=== PATIENT | female | born 2005 | race Caucasian/White ===

== ENCOUNTER 2024-04-04 12:09 | Emergency (ER) | payer OTHER, SELFPAY ==
[2024-04-04 12:18] VITALS: BP 118/65; PULSE 104; RESP 16; TEMP 36.4; O2SAT 99
[2024-04-04 12:32] LABS: EDSTREPNEGPOS1 Negative (Negative)
--- NOTE | 2024-04-04 12:37 | ED.URI ---
HPI - URI/Sore Throat General Chief Complaint: Upper Respiratory Infection Stated Complaint: Sore Throat Time Seen by Provider: 04/04/24 12:30 Source: patient and RN notes reviewed Mode of arrival: ambulatory Limitations: no limitations History of Present Illness HPI Narrative: Patient presents today complaining of sore throat, nasal congestion, and right ear pain since last night. Denies fever, cough, shortness of breath. She has tried Mucinex without relief. Related Data Home Medications Medication Instructions Recorded Confirmed ferrous sulfate 325 mg (65 mg 325 mg PO DAILY 04/04/24 04/04/24 iron) tablet norethindrone (contraceptive) 0.35 0.35 mg PO DAILY 04/04/24 04/04/24 mg tablet sumatriptan succinate 25 mg tablet 25 mg PO DAILY 04/04/24 04/04/24 Review of Systems Review of Systems: CONSTITUTIONAL: Denies body aches, fever, chills, or sweats. EYES: Denies visual changes, redness, or discharge. ENT: Denies rhinorrhea.+ sore throat, right ear pain congestion CARDIOVASCULAR: Denies chest pain, palpitations, or edema. RESPIRATORY: Denies cough or dyspnea. GASTROINTESTINAL: Denies abdominal pain, nausea, vomiting, or diarrhea. GENITOURINARY: Denies dysuria or hematuria. SKIN: Denies rash, itching, or wounds. MUSCULOSKELETAL: Denies back pain, joint pain, or myalgia. NEUROLOGIC: Denies headache, numbness, tingling, or weakness. PSYCH: Denies depression or anxiety. [facility] Surgical History Surgical History (Updated 04/04/24 @ 12:39 by Rehana Madrigal, [facility], ) H/O gastric sleeve Comments At time of signature, I have reviewed and agree with nursing past medical, surgical, social and family history unless otherwise noted. Please see nursing chart for further information. There is no relevant family history pertinent to the presenting complaint Exam Narrative: GENERAL: Well-appearing, well-nourished, and in no acute distress. HEAD: Normocephalic, atraumatic. EYES: EOMI. No redness or drainage. Conjunctivae normal. ENT: Mucous membranes pink and moist. Nares clear. No rhinorrhea. TMs normal bilaterally. Throat normal. Uvula midline. NECK: Normal AROM. Supple. No lymphadenopathy. CHEST: No respiratory distress. Clear to auscultation. HEART: Regular rate and rhythm. No murmur appreciated. EXTREMITIES: Normal range of motion. No edema. SKIN: Warm, dry, no rash. Capillary refill normal. Normal skin turgor. NEURO: No focal deficits. Alert and oriented x3. Gait steady. PSYCH: Normal affect. No signs of depression or anxiety. Course Course Level of Care: Express Care Visit Vital Signs Vital signs: Vital Signs Temperature 97.6 F 04/04/24 12:18 Pulse Rate 104 H 04/04/24 12:18 Respiratory Rate 16 04/04/24 12:18 Blood Pressure 118/65 04/04/24 12:18 Pulse Oximetry 99 04/04/24 12:18 Temperature 97.6 F 04/04/24 12:18 Pulse Rate 104 H 04/04/24 12:18 Respiratory Rate 16 04/04/24 12:18 Blood Pressure 118/65 04/04/24 12:18 Pulse Oximetry 99 04/04/24 12:18 Reviewed MDM - URI/Sore Throat MDM Narrative Medical decision making narrative: Rapid strep negative. Culture pending. Symptoms likely viral in etiology. Discussed [id number] medication use and duration of illness. No prescription medications indicated at this time. Anticipatory guidance given. Differential Diagnosis Differential diagnosis: Likely upper respiratory infection, otitis media, viral infection, pharyngitis and other (Strep throat) Lab Data Attestation: I reviewed the patient's lab results. Labs: Lab Results 04/04/24 Range/Units 12:30 POC Grp A Strep Screen Negative (Negative) Critical Care Time Critical Care Time Critical Care Time: No Discharge Plan Discharge Clinical Impression: Upper respiratory infection Qualifiers: URI type: unspecified URI Qualified Code(s): J06.9 - Acute upper respiratory infection, unspecified Patient Disposition: Home, Self-Care Condition: Stable Instructions: Upper Respiratory Infection (DC) Additional Instructions: Your rapid strep swab was negative today at [facility]. You will be notified in a few days if the culture comes back positive for strep, and appropriate antibiotics will be called in for you at that time. Your symptoms are likely due to a viral illness, which is not treated with antibiotics. Viral symptoms can be present for up to 7-10 days. Take Tylenol for fever or pain. Rest and stay hydrated. Follow up with your PCP in 7-10 days if symptoms are not improving. Go to the ER immediately if you have any difficulty breathing or swallowing. Prescriptions: No Action sumatriptan succinate 25 mg tablet 25 mg PO DAILY norethindrone (contraceptive) 0.35 mg tablet 0.35 mg PO DAILY ferrous sulfate 325 mg (65 mg iron) Tablet 325 mg PO DAILY Follow-up/Referrals: PHYSICIAN,ASSEMBLER [facility] PIPES [Primary Care Provider] - Time of Disposition: 12:40
== END 2024-04-04 12:43 | disposition home or self-care (01) ==
PROVIDERS: Emergency Provider Nurse Practitioner
DX: J06.9 Acute upper respiratory infection, unspecified (principal); Z98.84 Bariatric surgery status
CPT/HCPCS: 87081; 87880; 99203; G0463

== ENCOUNTER 2024-05-07 14:15 | Emergency (ER) | payer OTHER, SELFPAY ==
[2024-05-07 14:30] VITALS: BP 133/72; PULSE 93; RESP 18; TEMP 36.6; O2SAT 98
--- NOTE | 2024-05-07 14:52 | ED_ITS ---
HPI - URI/Sore Throat General Chief Complaint: Upper Respiratory Infection Stated Complaint: Cough Time Seen by Provider: 05/07/24 14:53 Source: patient Mode of arrival: ambulatory Limitations: no limitations History of Present Illness HPI Narrative: 18-year-old female presented for complaint of chest congestion and cough. States she had a cough one week ago, then it resolved for 2 days. States she woke with cough again yesterday, and endorses the upper chest feels tight with coughing. Denies sob, wheezing, lethargy, n/v/d/f/c. Related Data Home Medications ?Medication ?Instructions ?Recorded ?Confirmed ?Last Taken ?Type ferrous sulfate 325 mg (65 mg 325 mg PO DAILY 04/04/24 04/04/24 Unknown History iron) tablet norethindrone (contraceptive) 0.35 0.35 mg PO DAILY 04/04/24 04/04/24 Unknown History mg tablet Allergies Allergy/AdvReac Type Severity Reaction Status Date / Time No Known Allergies Allergy Verified 05/07/24 14:49 Review of Systems Review of Systems: CONSTITUTIONAL: Denies body aches, fever, chills, or sweats. EYES: Denies visual changes, redness, or discharge. ENT: Denies rhinorrhea, congestion, sore throat, or otalgia. CARDIOVASCULAR: Denies chest pain, palpitations, or edema. RESPIRATORY: Reports cough, denies sob, wheezing. GASTROINTESTINAL: Denies abdominal pain, nausea, vomiting, or diarrhea. NEUROLOGIC: Denies headache, numbness, tingling, or weakness. PSYCH: Denies depression or anxiety. All systems reviewed & are unremarkable except as noted in HPI and below [facility] Surgical History Surgical History H/O gastric sleeve Comments At time of signature, I have reviewed and agree with nursing past medical, surgical, social and family history unless otherwise noted. Please see nursing chart for further information. There is no relevant family history pertinent to the presenting complaint Exam Narrative: GENERAL: Well-appearing, in no acute distress. EYES: EOMI. No redness or drainage. Conjunctivae normal. ENT: Mucous membranes pink and moist. No rhinorrhea. TMs normal bilaterally. Throat normal. Uvula midline. NECK: Normal AROM. Supple. CHEST: No respiratory distress. Lungs clear to all ritter. HEART: Regular rate and rhythm. No murmur appreciated. ABDOMEN: Soft, nontender, nondistended, normal active bowel sounds. SKIN: Warm, dry, no rash. Capillary refill normal. Normal skin turgor. NEURO: Alert and oriented x3. Gait steady. PSYCH: Normal affect. Course Course Emergency Course: Patient is aware of diagnosis, understands and agrees to treatment plan. Anticipatory guidance given. Patient agrees to follow-up as directed and is gordon re of reasons to seek care at the emergency department. Portions of this record may have been created with voice recognition software Level of Care: Express Care Visit Vital Signs Vital signs: Vital Signs Temperature 97.8 F 05/07/24 14:30 Pulse Rate 93 05/07/24 14:30 Respiratory Rate 18 05/07/24 14:30 Blood Pressure 133/72 05/07/24 14:30 Pulse Oximetry 98 05/07/24 14:30 Oxygen Delivery Room Air 05/07/24 14:30 Temperature 97.8 F 05/07/24 14:30 Pulse Rate 93 05/07/24 14:30 Respiratory Rate 18 05/07/24 14:30 Blood Pressure 133/72 05/07/24 14:30 Pulse Oximetry 98 05/07/24 14:30 Oxygen Delivery Room Air 05/07/24 14:30 MDM - URI/Sore Throat MDM Narrative Medical decision making narrative: Discussed physical exam findings. Advised supportive measures and signs/symptoms to go to the ER. Pt is appropriate for outpt treatment and f/u. Differential Diagnosis Differential diagnosis: Likely upper respiratory infection, otitis media, sinusitis, viral infection, bronchitis, influenza and pharyngitis Discharge Plan Discharge Clinical Impression: Bronchitis Patient Disposition: Home, Self-Care Condition: Stable Instructions: Antibiotic Form, Acute Bronchitis (ED) Additional Instructions: Acute bronchitis can be contagious because it is usually caused by infection with a virus or bacteria. It is usually for a few days but you can be contagious for up to one week. Avoid crowds until you do not have a fever and symptoms are improved Take medication as directed Recommendations: over the counter Cough syrup may cause drowsiness; avoid driving or take it at night time. Tylenol 1000mg every 8 hours as needed for pain Flonase spray and Zyrtec (or Claritin/Loree) if you have nasal congestion Symptomatic treatment includes: rest, fluids, and increase humidity of the air at home. Follow up with your primary care provider as needed in 1 week Go to the ER for worsening symptoms or concerns Patient Language: Citizen Of [place] Prescriptions: New azithromycin [Zithromax Z-Henrik] 250 mg tablet See Rx Instructions .ROUTE .COMPLEX Qty: 6 0RF Rx Instructions: For 250 mg dose pack: take 500 mg today (day 1), then 250 mg for 4 days (days 2-5) benzonatate 200 mg capsule 200 mg PO TID PRN (Reason: cough) Qty: 20 0RF prednisone 50 mg tablet 50 mg PO DAILY Qty: 5 0RF No Action norethindrone (contraceptive) 0.35 mg tablet 0.35 mg PO DAILY ferrous sulfate 325 mg (65 mg iron) Tablet 325 mg PO DAILY Follow-up/Referrals: UNKNOWN,DOCTOR [Primary Care Provider] - Time of Disposition: 14:59
== END 2024-05-07 15:05 | disposition home or self-care (01) ==
PROVIDERS: Emergency Provider Nurse Practitioner Family
DX: J40 Bronchitis, not specified as acute or chronic (principal); Z98.84 Bariatric surgery status
CPT/HCPCS: 99213; G0463